=== PATIENT | female | born 1980 | race Caucasian/White ===

== ENCOUNTER 2019-11-30 20:02 | Emergency (ER) | payer MEDICARE, MEDICAID ==
[~2019-11-30 20:02] MED LIST: Cyclobenzaprine 10 MG Tab ONE
[2019-11-30] MEDS ORDERED: Ketorolac 60 MG/2 ML SDV IVPUSH ONE (21:01)
[2019-11-30] MEDS ORDERED: Ondansetron 4 MG/2 ML SDV IVPUSH ONE (21:07)
--- NOTE | 2019-11-30 22:37 | ER ---
REASON FOR EMERGENCY ROOM VISIT: Back pain. HISTORY: This 38-year-old woman from [place], [place], is up visiting relatives. She comes in with a 4- to 5-day history of left-sided lower back pain. She states that she has a longstanding history of back trouble including bulging lumbar discs as well as problems with her cervical spine. Approximately 2 weeks ago, her neck started getting stiff on her and was bothering her for quite a number of days, but that has seemed to let up. For the past 4 to 5 days, she has had gradual onset of steady pain in the left lower back region, which is consistent with pain that she has experienced in the past. She has been taking Zanaflex, but ran out of this medication. She tells me that she has been seeing her primary care provider for this back pain and she is set up to see someone regarding possible lumbar surgery for what she describes as bulging discs. She has been managing this with Zanaflex and ibuprofen as needed. She denies any history of trauma. She denies any numbness or weakness or any problems with bowel or bladder continence. Her last menstrual period was 1 month ago. She has not had any GI symptoms. She denies any hematuria or dysuria. She has not had any fever or chills, but she states she feels "cold" at the present time. She does have some mild nausea, which she attributes to the pain. It is important to note that she does have an extensive history of renal stones, having undergone lithotripsy on 2 separate occasions. She has required ureteral stents in the past as well. She thinks that her pain from her kidney stones is distinctly different than what she is experiencing now, but she is nonetheless concerned that this could be related to stones. PAST MEDICAL HISTORY: Significant for: 1. Deep vein thrombosis for which she was treated with Coumadin in 2016. 2. x2. 3. History of lithotripsy x2. 4. History of nephrolithiasis with ureteral stents. 5. 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 I am not certain exactly what she had done, but this is her only description. 6. Hypothyroidism. 7. Restless legs syndrome. 8. Anxiety. 9. Hypertension. MEDICATIONS: Include the following. Please see electronic medical records for doses. 1. Zanaflex. 2. Requip. 3. Clonidine. 4. Pantoprazole. 5. Ondansetron. 6. Minocycline. 7. Metoprolol. 8. Levothyroxine. 9. Ibuprofen p.r.n. 10.Desvenlafaxine. 11.Clonazepam. 12.Zyrtec p.r.n. 13.Albuterol inhaler p.r.n. ALLERGIES: TO PENICILLIN. SOCIAL HISTORY: She is not . She has 4 children. She lives alone. She does smoke, but she denies alcohol or any illicit drug use. PHYSICAL EXAMINATION: GENERAL: She seems to be somewhat uncomfortable. VITAL SIGNS: She is afebrile. Her heart rate is 100, blood pressure 145/97, respirations 16, O2 sats 100% on room air. HEENT: Unremarkable. No conjunctivitis or scleral icterus. NECK: Supple and nontender to palpation. Normal range of motion. No adenopathy. CHEST: Clear to auscultation with good air exchange bilaterally. CARDIAC: Regular rate without murmur. ABDOMEN: Obese, soft, and nontender. There is no hepatosplenomegaly. There is no flank tenderness to deep palpation. MUSCULOSKELETAL: Examination of spine, she is nontender to percussion over the spinous processes, but she does seem to have some spasm in her paraspinal muscles, more so on the left than on the right over the lumbar area and there does seem to be a trigger point on palpating over the sacroiliac region. This was reproducible on a couple of different examinations. NEUROLOGIC: Deep tendon reflexes are symmetrical bilaterally in both lower extremities. Muscle tone, bulk, and strength is normal and symmetrical. Straight leg raising was negative. Sensation is normal to crude touch. EXTREMITIES: No edema. Normal pulses. No discoloration. SKIN: No rashes. LABORATORY DATA: CBC shows that she has a very mild leukocytosis at 11,400. Her hemoglobin is normal. Her urinalysis is unremarkable with no evidence of hematuria or UTI. IMPRESSION: Low back pain, musculoskeletal PLAN: To be on the safe side, we are going to proceed with a CT scan without contrast to rule out any ureterolithiasis. I instructed her that in all probability, this will not reveal any stones, but we need to be on the safe side. Should her CT scan be negative, then I talked to her about my usual and customary treatment for low back pain given her findings, this consists mainly of resumption of as much normal activity as possible, continued use of nonsteroidal anti-inflammatories. We will give her a prescription of Flexeril 10 mg 1 p.o. q.8 hours, dispensed #15. She has been schooled on various stretching exercises and I encouraged her to resume this and emphasized that this is an important part of treatment as well as preventions and it should be a part of her normal routine. I did discuss the normal natural history of this kind of problem with her. All questions were answered. She will be following up with her provider regarding this when she returns home to [place]. She agrees with this plan. Addendum: Her CT scan shows left nephrolithiasis (see report) but no evidence of obstructing calculi. This was reviewed with her and she will proceed with the above recommendations. LORIE /[id number] SHOLA
--- NOTE | 2019-12-01 09:07 | CT ---
Date of Service: 11/30/19 Clinical Data: back pain, Hx renal calculi UNENHANCED ABDOMEN AND PELVIC CT: Multislice acquisition through the abdomen and pelvis without IV or oral contrast was performed. No priors. The heart size is normal. The lower lungs are clear. The liver is normal size. Does have mildly increased density diffusely with respect to the spleen suggesting hemochromatosis. No focal hepatic lesions. The gallbladder is contracted. No calcified gallstones. The spleen appears normal. The pancreas appears normal. The right and left adrenals appear normal. There is a 4 mm nonobstructing renal calculi in the mid pole of the left kidney. There is a 1.3 cm nonobstructing renal calculus in the lower pole of the left kidney. There is mild pyelocaliectasis and ureterectasis on the left. No evidence of ureteral calculi on the left. The right kidney and collecting system appears normal. No nephrocalcinosis or nephrolithiasis on the right. The bladder is partially fluid filled. It appears normal. The appendix is not dilated. No evidence of appendicitis. No free air. No free fluid. No dilated loops of bowel. No adenopathy. No aortic aneurysm. There is a left caval iliac stent graft in place. No other significant findings. IMPRESSION: 1. Multiple left renal calculi. No evidence of ureteral calculi. Mild pyelocaliectasis and ureterectasis on the left. 2. Other findings as discussed above. [id number] [facility]
== END 2019-11-30 21:48 | disposition home or self-care (01) ==
LOC: LB.ED 20:02
DX: M54.5 Low back pain (principal); I10 Essential (primary) hypertension; E03.9 Hypothyroidism, unspecified; F41.9 Anxiety disorder, unspecified; F17.200 Nicotine dependence, unspecified, uncomplicated; Z86.718 Personal history of other venous thrombosis and embolism; Z86.711 Personal history of pulmonary embolism; Z79.01 Long term (current) use of anticoagulants; Z79.899 Other long term (current) drug therapy
CPT/HCPCS: 36415; 74176; 81001; 85025; 96374; 96375; 99284; A9270; J1885; J2405